=== PATIENT | male | born 1950 | race Caucasian/White ===

== ENCOUNTER 2016-12-22 17:54 | Emergency (ER) | payer OTHER ==
[2016-12-22 18:03] VITALS: BP 136/72; PULSE 99; TEMP 98.2; BMI 34.4
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
== END 2016-12-22 19:34 | disposition home or self-care (01) ==
LOC: JER 17:54
DX: F11.10 Opioid abuse, uncomplicated (principal); I10 Essential (primary) hypertension; J45.909 Unspecified asthma, uncomplicated; G89.29 Other chronic pain; V89.2XXS Person injured in unspecified motor-vehicle accident, traffic, sequela
CPT/HCPCS: 99282-25